=== PATIENT | female | born 1970 | race African-American/Black ===

== ENCOUNTER 2017-08-09 04:11 | Emergency (ER) | payer MEDICAID ==
[~2017-08-09] VITALS: Ht 167.6 cm; Wt 68.0 kg
--- NOTE | 2017-08-09 04:20 | NUR ---
PT TO ER BED 6. BIBRA C/O ABD PAIN X 1 DAY WITH DIARRHEA. PT PLACED IN GOWN AND ON [employer]GRAM[employer]. VSS/RESP EVEN UNLABORED/NAD NOTED/SKIN WARM AND DRY/DENIES N-V/ AFEBRILE/AOX4. AWAITING MD PACHECO.
[2017-08-09] MEDS ORDERED: DICYCLOMINE HCL INJ 20 MG/2 ML AMPUL IM ONE ×2 (04:30→06:04)
[2017-08-09] MEDS ORDERED: KETOROLAC TROMETHAMINE INJ 30 MG/ML VIAL IV ONE (04:30)
[2017-08-09] MEDS ORDERED: IV NS 0.9% 1,000 ML BAG IV ONE (04:30)
[2017-08-09] MEDS ORDERED: ONDANSETRON HCL/PF 4 MG/2 ML VIAL IVP ONE (04:30)
--- NOTE | 2017-08-09 04:45 | NUR ---
18G IV TO R FA X 1 ATTEMPT USING ASEPTIC TECH, BLOOD HANDED OVER TO THE LAB AT BEDSIDE. IV FLUSHES EASILY WITH NS, NO S/S OF INFILTRATION NOTED.
[2017-08-09 05:00] LABS: BASOPHILS % (AUTO) 0.6 % (0.0-2.0); EOSINOPHILS % (AUTO) 6.5 % (0.0-6.0); HEMATOCRIT 36 % (33-45); HEMOGLOBIN 12.3 g/dL (11.5-14.8); LYMPHOCYTES # (AUTO) 1.3 /CMM (0.8-4.8); LYMPHOCYTES % (AUTO) 27.6 % (20.0-44.0); MEAN CORPUSCULAR HGB CONC 34 g/dl (31.0-36.0); MEAN CORPUSCULAR VOLUME 93 fL (82-100); MONOCYTES # (AUTO) 0.4 /CMM (0.1-1.30); NEUTROPHILS # (AUTO) 2.7 /CMM (1.8-8.9); NEUTROPHILS % (AUTO) 56.3 % (43.0-81.0); PLATELET COUNT (AUTO) 315 /CMM (150-450); RDW COEFFICIENT OF VARIATION 12.8 (11.5-15.0); RED BLOOD CELL COUNT(AUTO) 3.88 MIL/uL (4.0-5.2); WHITE BLOOD COUNT (AUTO) 4.8 K/uL (4.3-11.0)
[2017-08-09 05:11] LABS: CALCIUM, SERUM 8.5 mg/dL (8.5-10.1)
[2017-08-09] MEDS ORDERED: CT SWABBABLE VALVE TRANS SET 1 EA INFUS.SET MC ONE (05:43)
[2017-08-09] MEDS ORDERED: IOHEXOL-300 100 ML VIAL IV ONE (05:43)
[2017-08-09] MEDS ORDERED: IV NS 0.9% 250 ML IV ONE (05:44)
--- NOTE | 2017-08-09 05:50 | NUR ---
PT TO CT. VSS.
--- NOTE | 2017-08-09 06:00 | NUR ---
PT BACK FROM CT. VSS PT MEDICATED PER MD ORDERS.
[2017-08-09] MEDS ORDERED: ONDANSETRON HCL/PF 4 MG/2 ML VIAL ONE (06:04)
[2017-08-09] MEDS ORDERED: KETOROLAC TROMETHAMINE 15 MG/ML VIAL ONE (06:04)
--- NOTE | 2017-08-09 07:38 | NUR ---
IV removed. Catheter intact and site benign. Pressure and 4x4 applied to site. No bleeding noted. Patient discharged to home in stable condition. Written and verbal after care instructions given. Patient verbalizes understanding of instruction. Patient ambulatory with a steady gait.
[2017-08-09 07:39] VITALS: BP 136/74
== END 2017-08-09 07:39 | disposition home or self-care (01) ==
LOC: ER 04:13
DX: K50.90 Crohn's disease, unspecified, without complications (principal)
CPT/HCPCS: 36415; 80048-TC; 85025-TC; A4606; J0500; J1885; J2405; J7030; J7050; Q9967; Z7610

== ENCOUNTER 2017-12-14 22:28 | Emergency (ER) | payer MEDICAID ==
[~2017-12-14] VITALS: Ht 162.6 cm; Wt 56.7 kg
[2017-12-14 22:30] VITALS: BP 128/69
[2017-12-15 02:34] LABS: BASOPHILS % (AUTO) 0.4 % (0.0-2.0); EOSINOPHILS % (AUTO) 1.5 % (0.0-6.0); HEMATOCRIT 42 % (33-45); HEMOGLOBIN 13.9 g/dL (11.5-14.8); LYMPHOCYTES % (AUTO) 25.5 % (20.0-44.0); MEAN CORPUSCULAR HEMOGLOBIN 32 PG (26.0-33.0); MEAN CORPUSCULAR HGB CONC 33 g/dl (31.0-36.0); MEAN CORPUSCULAR VOLUME 95 fL (82-100); MONOCYTES # (AUTO) 0.3 /CMM (0.1-1.30); MONOCYTES % (AUTO) 8.4 % (2.0-12.0); NEUTROPHILS # (AUTO) 2.6 /CMM (1.8-8.9); NEUTROPHILS % (AUTO) 64.2 % (43.0-81.0); PLATELET COUNT (AUTO) 323 /CMM (150-450); WHITE BLOOD COUNT (AUTO) 4.1 K/uL (4.3-11.0)
[2017-12-15 02:45] LABS: APPEARANCE,URINE SL CLOUDY (CLEAR); BILIRUBIN,URINE NEGATIVE (NEGATIVE); BLOOD, URINE 2+ Ery/uL (NEGATIVE); COLOR,URINE DARK YELLO (YELLOW); KETONES,URINE NEGATIVE (NEGATIVE); LEUKOCYTE ESTERASE ,URINE NEGATIVE (NEGATIVE); NITRITE, URINE NEGATIVE (NEGATIVE); PH,URINE 5.5 (5.0-8.0); PROTEIN,URINE TRACE mg/dl (NEGATIVE); UGLUCOSE NEGATIVE (NEGATIVE); UROBILINOGEN,URINE 0.2 EU/dL (0.2)
[2017-12-15 02:46] LABS: CALCIUM, SERUM 9.4 mg/dL (8.5-10.1); CREATININE 1.1 mg/dL (0.6-1.3)
[2017-12-15 02:52] LABS: ALBUMIN 4.3 g/dL (3.4-5.0); BILIRUBIN,DIRECT 0.2 mg/dL (0.0-0.2); BILIRUBIN,TOTAL 0.8 mg/dL (0.2-1.0); TOTAL PROTEIN, SERUM 8.4 g/dL (6.4-8.2)
[2017-12-15 03:01] LABS: BACTERIA,URINE Few /HPF (None Seen); MUCUS,URINE Few /LPF (None Seen); RBC,URINE 21-50 /HPF (0-2); SQUAMOUS EPITHELIAL CELL,UR Few /HPF (None Seen)
[2017-12-15] MEDS ORDERED: KETOROLAC TROMETHAMINE INJ 30 MG/ML VIAL ONE ×2 (04:49→04:53)
[2017-12-15] MEDS ORDERED: KETOROLAC TROMETHAMINE INJ 60 MG/2 ML VIAL IM ONE (05:00)
== END 2017-12-15 05:27 | disposition home or self-care (01) ==
LOC: ER 22:33
DX: K52.9 Noninfective gastroenteritis and colitis, unspecified (principal); Z88.8 Allergy status to other drugs, medicaments and biological substances; D25.9 Leiomyoma of uterus, unspecified; R16.2 Hepatomegaly with splenomegaly, not elsewhere classified
CPT/HCPCS: 36415; 70450; 74176; 80048; 80076; 81001; 83690; 84703; 85025; 87086; 99285; A4606; J1885 ×2; Z7610; 81000-TC

== ENCOUNTER 2017-12-15 21:00 | Emergency (ER) | payer MEDICAID ==
[~2017-12-15] VITALS: Ht 152.4 cm; Wt 54.4 kg
[2017-12-15 21:17] VITALS: BP 122/68
== END 2017-12-15 22:21 | disposition home or self-care (01) ==
LOC: ER 21:01
DX: B35.1 Tinea unguium (principal); F45.9 Somatoform disorder, unspecified; Z88.8 Allergy status to other drugs, medicaments and biological substances
CPT/HCPCS: 99281; A4606; Z7610; Z7502

== ENCOUNTER 2017-12-16 17:03 | Emergency (ER) | payer MEDICAID ==
[~2017-12-16] VITALS: Ht 162.6 cm; Wt 56.7 kg
[2017-12-16] MEDS ORDERED: IV NS 0.9% 1,000 ML BAG IV ONE (18:30)
[2017-12-16 18:34] LABS: BASOPHILS % (AUTO) 0.5 % (0.0-2.0); HEMATOCRIT 42 % (33-45); HEMOGLOBIN 13.8 g/dL (11.5-14.8); LYMPHOCYTES # (AUTO) 0.5 /CMM (0.8-4.8); LYMPHOCYTES % (AUTO) 17.9 % (20.0-44.0); MEAN CORPUSCULAR HEMOGLOBIN 31 PG (26.0-33.0); MEAN CORPUSCULAR HGB CONC 33 g/dl (31.0-36.0); MEAN CORPUSCULAR VOLUME 92 fL (82-100); MONOCYTES # (AUTO) 0.4 /CMM (0.1-1.30); MONOCYTES % (AUTO) 15.8 % (2.0-12.0); NEUTROPHILS # (AUTO) 1.9 /CMM (1.8-8.9); NEUTROPHILS % (AUTO) 64.8 % (43.0-81.0); PLATELET COUNT (AUTO) 257 /CMM (150-450); RDW COEFFICIENT OF VARIATION 12.1 (11.5-15.0); RED BLOOD CELL COUNT(AUTO) 4.51 MIL/uL (4.0-5.2); WHITE BLOOD COUNT (AUTO) 2.8 K/uL (4.3-11.0)
--- NOTE | 2017-12-16 18:34 | NUR ---
RECIEVED PATIENT AT THIS TIME, PT IS COMPLAINING OF SEVERE DIARRHEA X 2 DAYS, Hx OF CROHN'S DISEASE. PT ALSO C/O HEADACHE. NAD, VSS RR EVEN AND UNLABORED. SKIN IS WARM AND NON DIAPHORETIC. PT SEEN AND EVALUATED BY ZOE TRAN
[2017-12-16 18:47] LABS: CALCIUM, SERUM 9.4 mg/dL (8.5-10.1); CREATININE 1.6 mg/dL (0.6-1.3); POTASSIUM 3.4 mmol/L (3.5-5.1)
[2017-12-16] MEDS ORDERED: KETOROLAC TROMETHAMINE INJ 60 MG/2 ML VIAL IM ONE ×3 (19:30→19:33)
[2017-12-16 20:46] VITALS: BP 121/92
== END 2017-12-16 20:46 | disposition home or self-care (01) ==
LOC: ER 17:04
DX: R19.7 Diarrhea, unspecified (principal); Z88.8 Allergy status to other drugs, medicaments and biological substances
CPT/HCPCS: 36415; 80048; 85025; 87015; 87045; 87427 ×3; 87493; 89055; 96360; 96372; 99284; A4606; J1885; J7030; Z7610

== ENCOUNTER 2017-12-21 04:52 | Emergency (ER) | payer MEDICAID ==
[~2017-12-21] VITALS: Ht 162.6 cm; Wt 56.2 kg
[2017-12-21 04:57] VITALS: BP 147/97
[2017-12-21] MEDS ORDERED: IBUPROFEN 400 MG TABLET PO ONE (05:30)
[2017-12-21] MEDS ORDERED: IBUPROFEN 400 MG TABLET ONE (05:34)
--- NOTE | 2017-12-21 05:39 | NUR ---
pt requested to have only 400mg motrin instead of the 800mg. md notified.
--- NOTE | 2017-12-21 06:40 | NUR ---
Patient discharged to home in stable condition. Written and verbal after care instructions given. Patient verbalizes understanding of instruction. pt. ambulatory with a steady gait. pt left hosptial in stable condition.
== END 2017-12-21 06:40 | disposition home or self-care (01) ==
LOC: ER 04:56
DX: S16.1XXA Strain of muscle, fascia and tendon at neck level, initial encounter (principal); J45.909 Unspecified asthma, uncomplicated; K50.90 Crohn's disease, unspecified, without complications; Z88.8 Allergy status to other drugs, medicaments and biological substances; Y04.0XXA Assault by unarmed brawl or fight, initial encounter; Y93.89 Activity, other specified; Y92.89 Other specified places as the place of occurrence of the external cause; Y99.8 Other external cause status
CPT/HCPCS: 72040; 99284; A4606; Z7610

== ENCOUNTER 2017-12-24 00:26 | Emergency (ER) | payer MEDICAID ==
[~2017-12-24] VITALS: Ht 162.6 cm; Wt 57.2 kg
[2017-12-24 00:42] VITALS: BP 135/68
[2017-12-24] MEDS ORDERED: IBUPROFEN 400 MG TABLET ONE (00:55)
[2017-12-24] MEDS ORDERED: IBUPROFEN 400 MG TABLET PO ONE (01:00)
== END 2017-12-24 01:49 | disposition home or self-care (01) ==
LOC: ER 00:30
DX: M79.671 Pain in right foot (principal); M79.672 Pain in left foot; G89.29 Other chronic pain; Z76.5 Malingerer [conscious simulation]; J45.909 Unspecified asthma, uncomplicated; Z88.8 Allergy status to other drugs, medicaments and biological substances
CPT/HCPCS: A4606; Z7502; Z7610

== ENCOUNTER 2017-12-30 04:56 | Emergency (ER) | payer MEDICAID ==
[~2017-12-30] VITALS: Ht 162.6 cm; Wt 50.3 kg
--- NOTE | 2017-12-30 04:56 | NUR ---
BIB SELF; "I HAVE NOTICED BLOOD WHEN I WIPE WHEN USING THE RESTROOM" PT IS HYPERTENSIVE BUT OTHERWISE VSS NO ACUTE DISTRESS AT THIS TIME. PT IS ALERT AND ORIENTED X3 ABLE TO MAKE NEEDS KNOWN BUT NOTED ANXIOUS STATING "SECURITY STOLE MY PHONE. THEY NEED TO GO TO A MENTAL HOSP[facility]". SKIN IS WARM AND INTACT. WILL CONTINUE TO MONITOR FOR ANY CHANGES DURING THE SHIFT.
--- NOTE | 2017-12-30 04:57 | NUR ---
ER MD SANTANA AT BEDSIDE FOR EVAL
[2017-12-30 05:42] LABS: BASOPHILS % (AUTO) 0.5 % (0.0-2.0); HEMATOCRIT 39 % (33-45); HEMOGLOBIN 12.8 g/dL (11.5-14.8); LYMPHOCYTES % (AUTO) 23.8 % (20.0-44.0); MEAN CORPUSCULAR HEMOGLOBIN 31 PG (26.0-33.0); MEAN CORPUSCULAR HGB CONC 33 g/dl (31.0-36.0); MEAN CORPUSCULAR VOLUME 94 fL (82-100); MONOCYTES # (AUTO) 0.4 /CMM (0.1-1.30); MONOCYTES % (AUTO) 9.5 % (2.0-12.0); NEUTROPHILS # (AUTO) 2.6 /CMM (1.8-8.9); NEUTROPHILS % (AUTO) 62.2 % (43.0-81.0); PLATELET COUNT (AUTO) 338 /CMM (150-450); RED BLOOD CELL COUNT(AUTO) 4.15 MIL/uL (4.0-5.2); WHITE BLOOD COUNT (AUTO) 4.1 K/uL (4.3-11.0)
[2017-12-30 05:58] LABS: INR 0.95 (0.87-1.13)
[2017-12-30 06:00] LABS: ALBUMIN 3.8 g/dL (3.4-5.0); BILIRUBIN,DIRECT 0.2 mg/dL (0.0-0.2); BILIRUBIN,TOTAL 0.6 mg/dL (0.2-1.0); CALCIUM, SERUM 9.3 mg/dL (8.5-10.1); TOTAL PROTEIN, SERUM 7.7 g/dL (6.4-8.2)
[2017-12-30 06:01] LABS: POTASSIUM 2.6 mmol/L (3.5-5.1)
[2017-12-30 06:04] VITALS: BP 151/67
[2017-12-30] MEDS ORDERED: POTASSIUM CHLORIDE 20 MEQ TAB.PRT.SR PO ONE ×2 (06:10→06:30)
== END 2017-12-30 07:06 | disposition home or self-care (01) ==
LOC: ER 04:56
DX: K92.1 Melena (principal); E87.6 Hypokalemia; J45.909 Unspecified asthma, uncomplicated; K50.90 Crohn's disease, unspecified, without complications; Z88.8 Allergy status to other drugs, medicaments and biological substances
CPT/HCPCS: 36415; 80048-TC; 80076-TC; 83690-TC; 85025-TC; 85730-TC; A4606; Z7610